=== PATIENT | female | born 1980 | race Caucasian/White ===

== ENCOUNTER 2023-12-22 10:15 | Emergency (ER) | payer BC, SELFPAY ==
[2023-12-22] VITALS (7 sets, daily range): BP systolic 128–141; BP diastolic 88–100; PULSE 82–90; RESP 18; TEMP 36.6; O2SAT 99–100
--- NOTE | ~2023-12-22 | CT_ITS ---
EXAMINATION: CT abdomen pelvis w con DATE: 12/22/2023 11:13 INDICATION: Left lower quadrant abdominal pain TECHNIQUE: Computed tomography (CT) of the abdomen and pelvis was performed with 100 mL Omnipaque-350 intravenous contrast. Automated exposure control and iterative reconstruction technique were employe d. The dose-length product was 351.26 mGy-cm. COMPARISON: 11/04/2018 FINDINGS: Mild dependent atelectasis in the dependent lower lobes. Heart size is normal. No pericardial or pleu ral effusion. Liver, gallbladder, spleen, pancreas, bilateral adrenal glands and kidneys are normal. There is moderate colonic diverticulosis with a sigmoid predominance. There is no adjacent inflammato ry change to suggest diverticulitis. Small bowel and appendix are normal.2.0 cm rim enhancing left ov josue corpus luteum cyst. Bladder, anteverted uterus and right ovary are normal. No free intraperiton eal gas or fluid. No pathologically enlarged abdominal or pelvic lymphadenopathy. Mild thoracolumbar dextrocurvature with mild to moderate lumbar spondylosis. IMPRESSION: 1. 2.0 cm left ovarian corpus luteum cyst. No other acute intra-abdominal/pelvic process. 2. Diverticulosis. Reviewed, dictated and finalized at location A. IMPRESSION: 1. 2.0 cm left ovarian corpus luteum cyst. No other acute intra-abdominal/pelvi c process. 2. Diverticulosis.
--- NOTE | ~2023-12-22 | US_ITS ---
EXAMINATION: US pelvic complete w TV DATE: 12/22/2023 12:46 INDICATION: Concern for left ovarian torsion presenting with left pelvic pain TECHNIQUE: Multiple transabdominal and endovaginal sonographic images of the pelvis were obtained. COMPARISON: CT dated 12/22/2023 and pelvic ultrasound dated 11/04/1989 FINDINGS: The uterus measures 8.5 x 4.6 x 6.7 cm. The endometrial complex measures 9 mm in thickness. In the p osterior myometrium there is a 2.9 x 2.0 x 2.2 cm ovoid region of subtly decreased echogenicity with refraction artifact extending posteriorly from a few hyperechoic foci and subtalar cystic spaces. Dif ferential would include uterine fibroid and focal adenomyosis. The right ovary measures 3.0 x 2.6 x 2 .2 cm. And 1 cm anechoic cyst at the right ovary. The left ovary measures 2.8 x 2.5 x 2.4 cm. There i s a 1.4 cm thick-walled likely corpus luteum cyst at the left ovary with increased peripheral vascula r flow on color Doppler which corresponds to the hyperenhancing rim on the prior CT. Vascular flow id entified in both ovaries on color Doppler. There are prominent left parametrial and paraovarian veins with dilated left gonadal vein evident on prior CT which can be seen with pelvic vascular congestion syndrome. There is no free fluid in the pelvis. IMPRESSION: 1. Vascular flow to both ovaries with dilated left parametrial, paraovarian and gonadal veins which c an be seen with pelvic gastric congestion syndrome. 2. 1.4 cm left ovarian corpus luteum cyst. 3. 2.9 x 2.0 x 2.2 cm hypoechoic region in the posterior uterine wall which could represent either a fibroid or focal adenomyosis. Reviewed, dictated and finalized at location A. IMPRESSION: 1. Vascular flow to both ovaries with dilated left parametrial, paraovarian and gonadal veins which can be seen with pelvic gastric congestion syndrome. 2. 1.4 cm left ovarian corpus luteum cyst. 3. 2.9 x 2.0 x 2.2 cm hypoechoic region in the posterior uterine wall which cou ld represent either a fibroid or focal adenomyosis.
--- NOTE | 2023-12-22 10:28 | ED.ABDPAIN ---
HPI - Abdominal Pain General Chief Complaint: Abdominal Pain Stated Complaint: left abd pain Time Seen by Provider: 12/22/23 10:18 History of Present Illness HPI narrative: [age] female history IBS and diverticulitis presenting emergency department for evaluation of left lower quadrant pain that is been ongoing for greater than a week and half. Patient's suspected this was initially her IBS but is symptoms proceeded she began to suspect it was diverticulitis. Patient did have follow-up urgent care on Friday and they told her they were not able to get start antibiotics recommend she have follow-up with primary care physician. Patient had follow-up with primary care physician today and they stated they also were unable to treat her and recommended that she present to the emergency department for evaluation. Patient is anxious and tearful at time of evaluation. Related Data Allergies Allergy/AdvReac Type Severity Reaction Status Date / Time cephalexin AdvReac Rash Verified 12/22/23 10:31 Review of Systems Review of Systems: All systems reviewed & are unremarkable except as noted in HPI and below Exam Narrative: APPEARANCE: Uncomfortable appearing HEAD: normocephalic, atraumatic. EYES: PERRLA/EOMI, conjunctivae clear. NOSE: Normal no drainage EARS:TMS clear with good light reflex. THROAT: Pharynx clear, no exudate. NECK: Supple. No adenopathy, no masses. RESPIRATORY: Airway patent, respirations nonlabored. Clear to auscultation bilaterally, no rales, rhonchi, wheezing. CARDIOVASCULAR: Regular rate and rhythm without murmurs rubs or gallops. ABDOMINAL: Left lower quadrant tenderness to palpation MUSCULOSKELETAL: Moves all extremities. Strength/ROM intact, No edema, No calf tenderness. NEURO: Alert. Cranial nerves II through XII intact. Grossly intact PSYCHIATRIC: Tearful and anxious affect Course Course Emergency Course: Patient felt improved with treatment patient was discharged to home. Vital Signs Vital signs: Vital Signs Temperature 97.9 F 12/22/23 10:20 Pulse Rate 90 12/22/23 10:20 Respiratory Rate 18 12/22/23 10:20 Blood Pressure 141/100 H 12/22/23 10:20 Pulse Oximetry 100 12/22/23 10:20 Oxygen Delivery Room Air 12/22/23 10:20 Temperature 97.9 F 12/22/23 10:20 Pulse Rate 82 12/22/23 13:52 Respiratory Rate 18 12/22/23 13:52 Blood Pressure 128/88 12/22/23 13:51 Pulse Oximetry 99 12/22/23 13:52 Oxygen Delivery Room Air 12/22/23 10:20 MDM - Abdominal Pain MDM Narrative Medical decision making narrative: [age] female presenting to the ED for evaluation for left lower quadrant pain with concern for diverticulitis. Patient was provided IV medications for pain control nausea control and anxiolysis. Patient is afebrile with no leukocytosis and a stable hemoglobin. INR is 1.0. No acute abnormalities on her CMP UA shows no evidence of infection. CT scan was ordered to evaluate for diverticulitis CT scan showed diverticulosis and2.0 cm left ovarian corpus luteum cyst. Ultrasound was ordered to evaluate for torsion. Ultrasound did show no evidence of torsion did show a fibroid and left-sided cyst. Patient does feel improved. Patient was updated on the results of her workup and patient was encouraged to have close follow-up with OB Gyne. Differential Diagnosis Differential diagnosis: Likely abdominal pain, acute appendicitis, constipation, diverticulitis, gastroenteritis, pancreatitis and small bowel obstruction Lab Data Attestation: I reviewed the patient's lab results. 12/22/23 10:40 12/22/23 10:40 Labs: Lab Results 12/22/23 12/22/23 Range/Units 10:40 11:48 WBC 7.6 (4.5-10.0) K/mm3 RBC 4.72 (4.2-5.4) M/mm3 Hgb 15.0 (12.0-15.0) g/dL Hct 43.6 (37.0-47.0) % MCV 92.4 (80-100) fl MCH 31.8 (26-34) pg MCHC 34.4 (32-36) g/dl RDW 12.4 (11.5-14.5) % Plt Count 152 (150-375) k/mm3 M
[2023-12-22] MEDS: Please add drug allergy info to patient profile. 1 EACH XX (10:31)
[2023-12-22] MEDS: SODIUM CHLORIDE 0.9% IV 1,000 ML 999 ML IV CONT (10:41)
[2023-12-22] MEDS: ONDANSETRON INJ 4 MG/2 ML VIAL IV PUSH (10:41)
[2023-12-22] MEDS: HYDROmorphone HCL INJ (*CRX) 1 MG/ML SYR 0.5 MG IV PUSH (10:43)
[2023-12-22 10:48] LABS: Basophils Percent Auto 0.5 % (0.2-1.2); Eosinophils Absolute Auto 0.1 K/mm3 (0-0.3); Eosinophils Percent Auto 1.4 % (0-4.4); Hematocrit 43.6 % (37.0-47.0); Immature Granulocyte Absolute 0.03 K/mm3 (0.00-0.031); Immature Granulocyte Percent A 0.4 % (0-0.5); Lymphocytes Absolute Auto 2.07 K/mm3 (0.9-3.2); Lymphocytes Percent Auto 27.2 % (18.3-44.2); Mean Corpuscular HGB Conc 34.4 g/dl (32-36); Mean Corpuscular Hemoglobin 31.8 pg (26-34); Mean Corpuscular Volume 92.4 fl (80-100); Mean Platelet Volume 10.5 fl (7.4-10.4); Monocytes Absolute Auto 0.4 K/mm3 (0.1-0.6); Monocytes Percent Auto 4.7 % (2.6-8.5); Neutrophils Percent Auto 65.8 % (45.5-73.1); Platelet Count Result 152 k/mm3 (150-375); Red Blood Count 4.72 M/mm3 (4.2-5.4); Red Cell Distribution Width 12.4 % (11.5-14.5); White Blood Count 7.6 K/mm3 (4.5-10.0)
[2023-12-22 10:57] LABS: Alanine Aminotransferase 13 U/L (6-35); Albumin Level 4.6 g/dL (3.5-5.1); Alkaline Phosphatase 58 U/L (38-126); Anion Gap 9 mmol/L (4-12); Aspartate Amino Transferase 16 U/L (14-36); Bilirubin,Total 0.8 mg/dL (0.2-1.3); Blood Urea Nitrogen 12 mg/dL (7-17); Calcium 9.2 mg/dL (8.4-10.2); Carbon Dioxide 24 mmol/L (22-30); Chloride 107 mmol/L (98-107); Estimated CRCL calculation 68 ml/min; Estimated Glomerular Filt Rate > 60; Glucose 99 mg/dL (65-110); Lipase 78 U/L (23-300); Potassium 3.7 mmol/L (3.4-5.0); Sodium 140 mmol/L (137-145)
[2023-12-22 10:58] LABS: Prothrombin Time 13.4 Seconds (11.1-14.7)
[2023-12-22 10:59] LABS: Partial Thromboplastin Time 29.3 Seconds (22.3-36.8)
[2023-12-22 11:57] LABS: Appearance Urine Clear (Clear); Bilirubin Urine Negative (Negative); Blood Urine Negative (Negative); Color Urine Yellow (Yellow); Glucose Urine UA Negative (Negative); Ketones Urine Negative (Negative); Leukocyte Esterase Ur Negative LEU/UL (Negative); Nitrate Urine Negative (Negative); Protein Urine Negative (Negative); Urobilinogen Urine 0.2 mg/dL (<2.0)
[2023-12-22 12:00] LABS: Specific Grav Ur 1.081 (1.001-1.035)
[2023-12-22 12:01] LABS: Add Urine Microscopic? NO
[2023-12-22] MEDS: HYDROcodone/acetaminophen (*CRX) 5-325 MG TABLET 1 TAB PO (14:00)
== END 2023-12-23 14:30 | disposition home or self-care (01) ==
PROVIDERS: Emergency Provider Emergency Medicine; PCP Physician Assistant
DX: R10.30 Lower abdominal pain, unspecified (principal); N83.12 Corpus luteum cyst of left ovary; D25.9 Leiomyoma of uterus, unspecified; K57.90 Diverticulosis of intestine, part unspecified, without perforation or abscess without bleeding
CPT/HCPCS: 36415; 74177; 76830; 76856; 80053; 81003; 81025; 83605; 83690; 85025; 85610; 85730; 96361; 96374; 96375; 99284; A9270; J1170; J2405; J7030; Q9967

== ENCOUNTER 2024-06-07 14:27 | Outpatient (CLI) | payer BC, SELFPAY ==
--- NOTE | ~2024-06-07 | MM_ITS ---
EXAMINATION: MM screening nate BI w kassy HISTORY: Screening TECHNIQUE: Craniocaudal and mediolateral oblique 3-D tomosynthesis images were obtained and synthetic 2-D images were generated. CAD analysis was submitted and interpreted. COMPARISON: No prior mammogram is available for comparison at this institution. BREAST PARENCHYMAL COMPOSITION: Dense: The breasts are heterogeneously dense, which may obscure small masses FINDINGS: There is a focal asymmetry superiorly in the right breast on MLO view. There is no mammogra phic evidence for malignancy in the left breast. IMPRESSION: 1. Focal right breast asymmetry superiorly on MLO view. 2. Additional mammographic views and possible breast ultrasound are recommended. BI-RADS Category 0: Incomplete: Needs additional imaging evaluation. Reviewed, dictated and finalized at location B. TRIPPER IMPRESSION: 1. Focal right breast asymmetry superiorly on MLO view. 2. Additional mammographic views and possible breast ultrasound are recommended . BI-RADS Category 0: Incomplete: Needs additional imaging evaluation.
== END 2024-06-07 14:28 | disposition home or self-care (01) ==
LOC: CHSIMG 14:28
PROVIDERS: PCP Physician Assistant; Visit Provider Obstetrics & Gynecology
DX: Z12.31 Encounter for screening mammogram for malignant neoplasm of breast (principal); R92.8 Other abnormal and inconclusive findings on diagnostic imaging of breast
CPT/HCPCS: 77063; 77067

== ENCOUNTER 2024-08-09 09:28 | Outpatient (CLI) | payer BC, SELFPAY ==
--- NOTE | ~2024-08-09 | MM_ITS ---
EXAMINATION: MM diagnostic nate RT w kassy HISTORY: Right breast asymmetry TECHNIQUE: Additional 3-D tomosynthesis images of the right breast were performed and synthetic 2-D i mages were generated. CAD analysis was submitted and interpreted. COMPARISON: 06/07/2024 BREAST PARENCHYMAL COMPOSITION:Dense: The breasts are heterogeneously dense, which may obscure small masses. FINDINGS: Right breast asymmetry effaces with spot compression. No persistent mass lesion or distorti on seen. No suspicious microcalcification. IMPRESSION: No mammographic evidence for malignancy. BI-RADS Category 1: Negative Reviewed, dictated and finalized at location . ET PULLER
--- OUTSIDE RECORDS SUMMARY | 2024-08-09 10:02 | XMS_ITS | Referral Summary ---
Author Organization [facility] Medical Office Building [address] Address [address] [place] [address] Care Team Providers Care Adjunct Mathematics Instructor Name Role Phone Dwayne Joyce Primary Care Provider [phone] Allergies Active Allergy Reactions Criticality Noted Date Comments Cephalexin Rash Low Reaction: RASH Medications PNV #[id number] acid-dha 35 mg iron-5 mg iron-1 mg capsule Take 1 capsule by mouth daily. 30 capsule 11 8 Active Additional Information Patient not taking.Reported on 01/27/2020 cholecalciferol (VITAMIN D-3) 2,000 unit capsule Take 2,000 Units by mouth daily. 11 8 Active dicyclomine (BENTYL) 10 mg capsule Take 1 capsule (10 mg total) by mouth 4 (four) times a day as needed (abdominal cramping and diarrhea) 120 capsule 1 0 Active Bifidobacterium infantis (ALIGN) 4 mg capsuleIndicatio ns:Irritable bowel syndrome, unspecified type Take 1 capsule (4 mg total) by mouth daily 28 capsule 0 Active Active Problems Problem Noted Date Diagnosed Date Irritable bowel syndrome with diarrhea 0 Assessment & Plan (01/27/2020 1:49 PM CDT): Pt has had bowel issues since she was a child. She says she had colonoscopy and other workup either in 2006 or 2008. Workup was negative and patient was diagnosed with IBS. She was on Levsin twice daily for many years.This helped with cramping but not with diarrhea. After of her first son, symptoms stopped and no issues for about 5 years. After her daughter was born (Jul 2018) she started to have issues again. Had diverticulitis episode November 2018 and treated with abx. She has had problems with diarrhea and cramping ever since. Pt says she has cramping in lower abdomen and can start in evening/night. She wakes up with cramping and causes her to have BM. The cramping stops once she has a BM but has some residual soreness in lower abdomen for a few hours. Eating often triggers a BM to occur and she can often have urgency. Denies weight loss, blood in stool. Denies family history of colon cancer. Agree that patient sx suggestive of IBS. Will start patient on daily probiotic. We discussed importance of diet with IBS and findings foods that may trigger her symptoms. Will have her use dicyclomine 10mg QID prn for abdominal cramping and diarrhea. Pt was told to use dicyclomine at least 3 times daily at least 30 to 45 minutes before meal and then can use 4th dose if she has cramping later in day. Will f/u in about 1 month. If no improvement or she has worrisome signs occurs, will consider colonoscopy. Bilateral lower abdominal cramping 01/27/2020 Assessment & Plan (01/27/2020 1:50 PM CDT): Cramping in lower abdomen that is relieved with BM. She says she does get some soreness after BM. Often has urgency as well. Starting on dicyclomine and probiotics. BMI 22.0-22.9, adult 01/27/2020 Vitamin D deficiency 01/22/2018 Resolved Problems Problem Noted Date Diagnosed Date Resolved Date Cholestasis during in third trimester 07/14/2018 08/25/2018 GBS (group B Streptococcus c pascale), +RV culture, currently 07/13/2018 08/25/2018 Benign gestational thrombocy topenia in second trimester 02/17/2018 08/25/2018 Vaginal delivery 08/25/2018 38 weeks gestation of 08/25/2018 Immunizations Name Administration Dates Next Due Influenza, Quadrivalent, Spl it, Preservative Free, Intramuscular 04/10/2018 MMR 07/17/2018(Deferred: No longer n eeded) Tdap 06/17/2018 Social History Tobacco Use Types Packs/Day Years Used Date Smoking Tobacco: Former Smokeless Tobacco: Never Alcohol Use Standard Drinks/Week Comments No 0 (1 standard drink = 0.6 oz pur e alcohol) Personal Safety Answer Date Recorded Getting School Help Needed Not on file 09/18 Comments No Sex and Gender Information Value Date Recorded Sex Assigned at Not on file 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 Gender Identity Not on file Sexual Orientation Not on file Last Filed Vital Signs Vital Sign Reading Time Taken Comments Blood Pressure 110/64 01/27/2020 10:42 AM CDT Pulse 93 01/27/2020 10:42 AM CDT Temperature 36.1 ??C (96.9 ??F) 01/27/2020 10:42 AM C DT Respiratory Rate 20 01/27/2020 10:42 AM CDT Oxygen Saturation 100% 01/27/2020 10:42 AM CDT Inhaled Oxygen Concentration - - Weight 65.8 kg (145 lb) 01/27/2020 10:42 AM CDT Height 170.2 cm (5' 7 ) 01/27/2020 10:42 AM CDT Body Mass Index 22.71 01/27/2020 10:42 AM CDT Plan of Treatment Not on file Insurance Advance Directives For more information, please contact: [phone] * Full Code (Latest Code Status on File) Date Activated Date Inactivated Comments 07/14/2018 5:37 PM 07/17/2018 1:43 PM Full CPR in c ase of cardiopulmonary arrest Care Teams Adjunct Mathematics Instructor Relationship Specialty Start Date End Date Dwayne Joyce PA [address] [place] [address] PCP - General Family Practice 01/27/20
--- OUTSIDE RECORDS SUMMARY | 2024-08-09 10:02 | XMS_ITS | Data Portability ---
Author Organization [place] [facility] - [facility] [place] Address [address] [place] [address] Assessment Encounter Date Assessment Date Assessment LastModified by Organization Details LastModified Time 06/27/2023 06/27/2023 Pt here with below diagnosis - pt here for evaluation for their condition, evaluation of their medication use, and discussion for alternative treatments. [email or web address] Not available 06/27/2023 11:29:46 07/01/2023 07/01/2023 Patient was seen today for follow up visit. We discussed patients future use of MMJ. We discussed the risks and benefits. Pt understands that we will certify patient, but the recommendation does not constitute a prescription for medical cannabis. Patient will receive an email from us with instructions on how to proceed by the evening of the next business day. [email or web address] Not available 07/01/2023 13:55:22 Plan of Treatment Reminders Order Date Submit Date Provider Last Modified By Organization Details Last Modified Time Details Appointments None record ed. Lab None record ed. Referral None record ed. Procedures None record ed. Surgeries None record ed. Imaging None record ed. Medication Orders None record ed. Patient TargetsNo targets recorded. Patient Instructions Encounter Date Encounter Id Patient Instructions Last Modified By Organization Details Last Modified Time 06/27/2023 [id number] irritable bowel syndrome: care instructions [email or web address] Not available 06/27/2023 11:30:18 I have discussed the risks and benefits of Medical Marijuana. Pt understands I am not prescribing this medication. I am certifying that this patient has a condition that is recognized by the state as qualifying for medical marijuana and this recommendation does not constitute a prescription for medical cannabis. Pt understands that my physician written certification form does not guarantee Medical Marijuana certification nor does it endorse the patient as needing medical marijuana. Patient understands that Medical Marijuana is a drug that the federal government has classified cannabis as a Schedule I controlled substance. Schedule 1 substances are defined, in part, as having (1) a high potential for abuse; (2) no currently accepted medical use in treatment in the [place]; and (3) a lack of accepted Safety for use under medical supervision. Federal law prohibits the manufacture, distribution and possession of cannabis even in states, which have modified their state laws to treat cannabis as a medicine. Pt also agrees that me, and the [facility] are my treating physicians and that we are in charge of treating the patient's conditions and that the patient will make a good maru effort to remain under my treatment plan and acknowledge there will be follow up visits from this date forward to monitor the patient's condition. Discussed risks and benefits of Medical Marijuana. I have spent time discussing the patients condition, pain/medical management of the patient given their debilitating condition, the risks and benefits of this medication, a history and physical, gathering old medical records to look at the disease processes being evaluated, and answering of all questions. [email or web address] Not available 06/27/2023 11:29:46 07/01/2023 [id number] I have discussed the risks and benefits of Medical Marijuana. Pt understands I am not prescribing this medication. I am certifying that this patient has a condition that is recognized by the state as qualifying for medical marijuana and this recommendation does not constitute a prescription for medical cannabis. Pt understands that my physician written certification form does not guarantee Medical Marijuana certification nor does it endorse the patient as needing medical marijuana. Patient understands that Medical Marijuana is a drug that the federal government has classified cannabis as a Schedule I controlled substance. Schedule 1 substances are defined, in part, as having (1) a high potential for abuse; (2) no currently accepted medical use in treatment in the [place]; and (3) a lack of accepted Safety for use under medical supervision. Federal law prohibits the manufacture, distribution and possession of cannabis even in states, which have modified their state laws to treat cannabis as a medicine. Pt also agrees that me, and the [facility] are my treating physicians and that we are in charge of treating the patient's conditions and that the patient will make a good maru effort to remain under my treatment plan and acknowledge there will be follow up visits from this date forward to monitor the patient's condition. Discussed risks and benefits of Medical Marijuana. I have spent time discussing the patients condition, pain/medical management of the patient given their debilitating condition, the risks and benefits of this medication, a history and physical, gathering old medical records to look at the disease processes being evaluated, and answering of all questions. [email or web address] Not available 07/01/2023 13:55:22 Reason for Referral None Reported. Medical Equipment None Reported. Medications Not known to be on any medication Vitals None Recorded Social History None recorded. Functional Status None recorded. Mental Status None recorded. Family History Nothing Reported. Medical History No medical history recorded. Gynecological HistoryNo gynecological history recorded. Obstetrics History GPAL:G 0 P 0 0 0 0 Past Encounters Encounter ID Performer Location Encounter Start Date Encounter Closed Date Diagnosis/Indication Diagnosis SNOMED-CT Code Diagnosis ICD10 Code Diagnosis Note [id number] ZORAIDA ZHOU PA-C [employer] [facility] [address] [place] [address] 06/27/2023 11:21:22 06/27/2023 12:49:17 Irritable bowel syndrome 86298458 K58.9 [id number] ZORAIDA ZHOU PA-C [employer] [facility] [address] [facility] [address] [place] [address] 07/01/2023 13:54:59 07/01/2023 14:07:46 Irritable bowel syndrome 67667235 K58.9 Health Concerns Section Related Observation LastModified by Organization Detai ls LastModified Time None Recorded Concern Status LastModified by Organization Details LastModified Time None Recorded Advance Directives Directive None Recorded Payers Encounter Date Sequence Insurance Name Policy Number Policy Leong Covered Member ID Leong Member ID Guarantor Name 06/27/2023 1 [place] [id number] 2 Katheryn Levy [id number] Katheryn Cam 07/01/2023 1 [place] [id number] Katheryn Sloane Levy [id number] Katheryn Levy Notes Date Note Type Note Provider Name and Address Organization Details Recorded Time 06/27/2023 text/html The patient woul d like to discuss medications, the disease, and how to handle it. Pt would also like to discuss alternative treatments to this condition. Pt was referred here for further evaluation and treatment if necessary. Patient has a diagnosis of qualifying condition - IRRITABLE BOWEL SYNDROME [address], [place], [address], [facility] 06/27/2023 11:30:26 07/01/2023 text/html The patient woul d like to discuss medications, the disease, and how to handle it. Pt would also like to discuss alternative treatments to this condition. Pt was referred here for further evaluation and treatment if necessary. Patient has a diagnosis of qualifying condition - irritable bowel syndrome. Pt here for 2nd visit to discuss condition and develop a relationship. We discussed the above and future use of medical marijuana. ZORAIDA ZHOU PA-C [address], [address], [place], [address], [facility] - [facility] 07/01/2023 13:57:55 OBGyn Episode No OBEpisode recorded.
--- OUTSIDE RECORDS SUMMARY | 2024-08-09 10:02 | XMS_ITS | Clinical Summary ---
Author Organization [facility] Medical Office Building [address] Address [address] [place] [address] Care Team Providers Care Heel Breaster Name Role Phone Dwayne Joyce Primary Care Provider [phone] Allergies Active Allergy Reactions Criticality Noted Date Comments Cephalexin Rash Low Reaction: RASH Medications PNV #[id number] acid-dha 35 mg iron-5 mg iron-1 mg [...] 07/17/2018(Deferred: No longer n eeded) Tdap 06/17/2018 Surgical History Surgery Date Site/Laterality Comments TONSILLECTOMY 07/07/1998 - 07/06/1999 OTHER SURGICAL HISTORY 07/07/2016 - 07/06/2017 Right Fifth metatarsal pin placed and removed Medical History Medical History Date Comments IBS (irritable bowel syndrome) Family History Medical History Relation Name Comments Prostate cancer Father Lupus Mother thyroid disease Mother Relation Name Status Comments Father Mother Social History Tobacco Use Types Packs/Day Years [...] on file 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 ([facility]) Last Filed Vital Signs Vital Sign Reading [...] Plan of Treatment Not on file Insurance [email or web address] [place] Advance Directives For more information, please contact: [phone] * Full Code (Latest Code Status on File) Date Activated Date Inactivated Comments 07/14/2018 5:37 PM 07/17/2018 1:43 PM Full CPR in c ase of cardiopulmonary arrest Care Teams Heel Breaster Relationship Specialty Start Date End Date Dwayne Joyce PA [address] [place] [address] PCP - General Family Practice 01/27/20
--- OUTSIDE RECORDS SUMMARY | 2024-08-09 10:02 | XMS_ITS | Data Portability ---
Author Organization [facility] [place] Address [address] 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 Plan of Treatment Reminders Order Date Submit Date Provider Last Modified By Organization Details Last Modified Time Details Appointments None recorded. Lab rapid SARS CoV 2 Ag, QL IA, respiratory specimen 2021 022 lilia In-Office Order, Internal Use Only DO Not Attach Compendium DO Not Attach Compendium, Do Not Delete/merge, [id number] 2 15:29:52 CBC 2023 024 [facility], [address] [facility] [address], [address], 4 10:14:05 CMP, serum or plasma 2023 024 [facility], [address] [facility] 2, [place], [address], 4 10:14:04 lipid panel, serum 2023 024 [facility], [address] [facility], [place], [address], 4 10:14:03 HbA1c (hemoglobin A1c), blood 2023 024 CAMILA In-Office Order, Internal Use Only DO Not Attach Compendium DO Not Attach Compendium, Do Not Delete/merge, [id number] 4 15:57:04 Referral None recorded. Procedures None recorded. Surgeries None recorded. Imaging None recorded. Medication Orders dicyclomine 10 mg capsule 2023 024 [id number], [address] [place], [address], 4 11:10:39 buspirone 5 mg tablet 2023 [id number], [address] [place], [address], 4 11:12:27 dicyclomine 10 mg capsule 2023 [id number], [address] [place], [address], 4 14:51:57 buspirone 5 mg tablet 2023 [id number], [address] [place], [address], 4 14:51:54 Patient TargetsNo targets recorded. Patient Instructions Encounter Date Encounter Id Patient Instructions Last Modified By Organization Details Last Modified Time 06/11/2022 [id number] cough: care instructions jnanney Not available 06/11/2022 15:29:52 01/19/2024 [id number] A healthy lifestyle: care instructions jnanney Not available 01/19/2024 14:50:08 Reason for Referral None Reported. Results Created Date Observation Date Name Description Value Unit Range Abnormal Flag Note LastModifiedBy Organization Detail LastModifiedTime 06/11/20 22 06/11/2022 rapid SARS CoV 2 Ag, QL IA, respi rator y speci men rapid SARS CoV 2 Ag, QL IA, respiratory specimen negati ve Not Available In-Office Order Internal Use Only DO Not Attach Compendium DO Not Attach Compendium, Do Not Delete/merge, [id number] 06/11/2022 14:43:32 08/21/19 24 08/22/2023 LIPID PANEL cholesterol, total 152 mg/dL 100-19 9 Not Available [address], [address], 08/22/2023 10:14:03 08/21/19 24 08/22/2023 LIPID PANEL triglyceride s 186 mg/dL 0-149 above high normal Not Available [address], [address], 08/22/2023 10:14:03 08/21/19 24 08/22/2023 LIPID PANEL HDL cholesterol 47 mg/dL >39 Not Available [address], [address], 08/22/2023 10:14:03 08/21/19 24 08/22/2023 LIPID PANEL VLDL cholesterol terri 31 mg/dL 5-40 Not Available [address], [address], 08/22/2023 10:14:03 08/21/19 24 08/22/2023 LIPID PANEL LDL chol calc (nih) 74 mg/dL 0-99 Not Available [address], [address], 08/22/2023 10:14:03 08/21/19 24 08/22/2023 COMP. METAB OLIC PANEL (14) glucose 85 mg/dL 70-99 Not Available [address], [address], 08/22/2023 10:14:03 08/21/19 24 08/22/2023 COMP. METAB OLIC PANEL (14) BUN 10 mg/dL 6-24 Not Available [address], [address], 08/22/2023 10:14:03 08/21/19 24 08/22/2023 COMP. METAB OLIC PANEL (14) creatinine 0.84 mg/dL 0.57-1 .00 Not Available [address], [address], 08/22/2023 10:14:03 08/21/19 24 08/22/2023 COMP. METAB OLIC PANEL (14) eGFR 88 mL/mi n/1.7 3 >59 Not Available [address], [address], 08/22/2023 10:14:03 08/21/19 24 08/22/2023 COMP. METAB OLIC PANEL (14) BUN/creatini ne ratio 12 9-23 Not Available [address], [address], 08/22/2023 10:14:03 08/21/19 24 08/22/2023 COMP. METAB OLIC PANEL (14) sodium 141 mmol/ L 134-14 4 Not Available [address], [address], 08/22/2023 10:14:03 08/21/19 24 08/22/2023 COMP. METAB OLIC PANEL (14) potassium 4.3 mmol/ L 3.5-5. 2 Not Available [address], [address], 08/22/2023 10:14:03 08/21/19 24 08/22/2023 COMP. METAB OLIC PANEL (14) chloride 104 mmol/ L 96-106 Not Available [address], [address], 08/22/2023 10:14:03 08/21/19 24 08/22/2023 COMP. METAB OLIC PANEL (14) carbon dioxide, total 25 mmol/ L 20-29 Not Available [address], [address], 08/22/2023 10:14:03 08/21/19 24 08/22/2023 COMP. METAB OLIC PANEL (14) calcium 9.3 mg/dL 8.7-10 .2 Not Available [address], [address], 08/22/2023 10:14:03 08/21/19 24 08/22/2023 COMP. METAB OLIC PANEL (14) protein, total 6.2 g/dL 6.0-8. 5 Not Available [address], [address], 08/22/2023 10:14:03 08/21/19 24 08/22/2023 COMP. METAB OLIC PANEL (14) albumin 4.4 g/dL 3.9-4. 9 Not Available [address], [address], 08/22/2023 10:14:03 08/21/19 24 08/22/2023 COMP. METAB OLIC PANEL (14) globulin, total 1.8 g/dL 1.5-4. 5 Not Available [address], [address], 08/22/2023 10:14:03 08/21/19 24 08/22/2023 COMP. METAB OLIC PANEL (14) A/G ratio 2.4 1.2-2. 2 above high normal Not Available [address], [address], 08/22/2023 10:14:03 08/21/19 24 08/22/2023 COMP. METAB OLIC PANEL (14) bilirubin, total 0.2 mg/dL 0.0-1. 2 Not Available [address], [address], 08/22/2023 10:14:03 08/21/19 24 08/22/2023 COMP. METAB OLIC PANEL (14) alkaline phosphatase 63 IU/L 44-121 Not Available [facility] & [address], [address], 08/22/2023 10:14:03 08/21/19 24 08/22/2023 COMP. METAB OLIC PANEL (14) AST (SGOT) 16 IU/L 0-40 Not Available [facility] & [address], [address], 08/22/2023 10:14:03 08/21/19 24 08/22/2023 COMP. METAB OLIC PANEL (14) ALT (SGPT) 11 IU/L 0-32 Not Available [address], [address], 08/22/2023 10:14:03 08/21/19 24 08/22/2023 CARDI OVASC ULAR REPOR T interpretati on Note Suppl emsun al repor t is avail able. Not Available [address], [address], 08/22/2023 10:14:05 08/21/19 24 08/22/2023 CARDI OVASC ULAR REPOR T pdf . Not Available [facility] & [address], [address], 08/22/2023 10:14:05 08/21/19 24 08/22/2023 CBC, PLATE LET, NO DIFFE RENTI AL WBC 5.4 x10e3 /uL 3.4-10 .8 Not Available [address], [address], 08/22/2023 10:14:05 08/21/19 24 08/22/2023 CBC, PLATE LET, NO DIFFE RENTI AL RBC 4.31 x10e6 /uL 3.77-5 .28 Not Available [facility] & [address], [address], 08/22/2023 10:14:05 08/21/19 24 08/22/2023 CBC, PLATE LET, NO DIFFE RENTI AL hemoglobin 13.4 g/dL 11.1-1 5.9 Not Available [address], [address], 08/22/2023 10:14:05 08/21/19 24 08/22/2023 CBC, PLATE LET, NO DIFFE RENTI AL hematocrit 40.4 % 34.0-4 6.6 Not Available [address], [address], 08/22/2023 10:14:05 08/21/19 24 08/22/2023 CBC, PLATE LET, NO DIFFE RENTI AL MCV 94 fL 79-97 Not Available [address], [address], 08/22/2023 10:14:05 08/21/19 24 08/22/2023 CBC, PLATE LET, NO DIFFE RENTI AL MCH 31.1 pg 26.6-3 3.0 Not Available [address], [address], 08/22/2023 10:14:05 08/21/19 24 08/22/2023 CBC, PLATE LET, NO DIFFE RENTI AL MCHC 33.2 g/dL 31.5-3 5.7 Not Available [facility] & [address], [address], 08/22/2023 10:14:05 08/21/19 24 08/22/2023 CBC, PLATE LET, NO DIFFE RENTI AL RDW 12.5 % 11.7-1 5.4 Not Available [address], [address], 08/22/2023 10:14:05 08/21/19 24 08/22/2023 CBC, PLATE LET, NO DIFFE RENTI AL platelets 174 x10e3 /uL 150-45 0 Not Available [facility] [address] [facility], [place], [address], 08/22/2023 10:14:05 08/21/19 24 08/21/2023 HbA1c (hemo globi n A1c), blood HbA1c 5.4 Not Available In-Office Order Internal Use Only DO Not Attach Compendium DO Not Attach Compendium, Do Not Delete/merge, [id number] 08/21/2023 15:44:01 12/22/19 24 12/22/2023 CT, abdom en + pelvi s, w/ contr ast No observ ation record ed. [address] [facility], [place], [address], 12/22/2023 12:44:37 12/22/19 24 12/22/2023 US, pelvi s, compl ete No observ ation record ed. [address], [place], [address], 12/22/2023 14:14:19 06/07/20 24 06/07/2024 MAMMO , scree jose, digit al, bilat eral No observ ation record ed. [facility] [address] [facility], [place], [address], 06/08/2024 09:09:22 Result Notes None recorded. Problems Name Problem SNOMED Code Status Onset Date Resolution Date Notes Provider Name and Address Organization Details Recorded Time Diverticulitis 730897685 Active 2018 MARTY [place]err[place] - [facility] 9 12:11:32 Irritable bowel syndrome 10328785 Active 2018 MARTY [place] [facility] 9 12:12:05 Problem Notes None recorded. Procedures Surgical History Date Name Laterality Status Provider Name and Address Organization Details Recorded Time 8 colonoscopy completed Sadie Griffin [place] - [facility] 12/07/2018 12:11:57 tonsillectomy completed Sadie Griffin MA [place] - [facility] 12/07/2018 12:13:47 Imaging Results Imaging Date Name Status LastModified by Organiz ation Details LastModified Time 12/22/2023 CT, abdomen + pelvis, w/ contrast completed [place] [address] [facility] [address], [address], 12/22/2023 12:44:37 12/22/2023 US, pelvis, complete completed [facility] [address], [place], [address], 12/22/2023 14:14:19 06/07/2024 MAMMO, screening, digital, bilateral completed [facility] [address] [place], [address], 06/08/2024 09:09:22 Procedure Notes None recorded. Medical Equipment None Reported. Allergies Allergen ID Allergen Name Allergen Category Reaction Reaction Severity Criticality Documentation Date Start Date Code Code System Note Provider Name and Address Organization Details Recorded Time 513515 Keflex medicatio n rash Not available Not available 12/07/201823806 7 RxNorm Arms Not Available Not Available Not Available Medications Name Sig Start Date Stop Date Status Note LastModified by Organization Details LastModified Time buspirone 5 mg tablet TAKE 1 TABLET BY MOUTH THREE TIMES A DAY DIRECTED FOR 30 DAYS 2023 active Not Available Not Available Not Avai lable hydrocodone 5 mg-acetamin ophen 325 mg tablet TAKE 1 TABLET BY MOUTH EVERY 12 HOURS NEEDED FOR PAIN 01/18 completed Not Available Not Available Not Available gabapentin 100 mg capsule TAKE 1 CAPSULE BY MOUTH THREE TIMES A DAY FOR 30 DAYS 08/21 completed Not Available Not Available Not Available dicyclomine 10 mg capsule TAKE 1 CAPSULE BY MOUTH THREE TIMES A DAY NEEDED active Not Available Not Available No t Available naproxen 500 mg tablet TAKE 1 TABLET BY MOUTH TWICE A DAY 08/21 completed Not Available Not Available Not Available Blisovi 24 Fe 1 mg-20 mcg (24)/75 mg (4) tablet active Not Available Not Available Not Available Paxlovid 300 mg (150 mg x 2)-100 mg tablets in a dose pack TAKE 1 DOSE PACK BY MOUTH DIRECTED 08/21 completed Not Available Not Available Not Available Vitals Date Recorded Body weight Body mass index (BMI) Body height Oxygen saturation Oxygen saturation in Arterial blood by Pulse oximetry Heart rate Systolic blood pressure Diastolic blood pressure Provider Name and Address Organization Details Last Updated DateTime 4 55656.1 9 g 26.1 kg/m2 166.37 cm 99 % 99 % 78 /min 110 mm[Hg] 72 mm[Hg] Skye Mandujano MA [facility] 4 15:33:11 Date Recorded Body height Body mass index (BMI) Body weight Oxygen saturation Oxygen saturation in Arterial blood by Pulse oximetry Heart rate Systolic blood pressure Diastolic blood pressure Provider Name and Address Organization Details Last Updated DateTime 4 166.37 cm 25.1 kg/m2 31166.6 3 g 100 % 100 % 101 /min 140 mm[Hg] 100 mm[Hg] Skye Mandujano MA [facility] 4 10:13:55 Date Recorded Body height Body mass index (BMI) Body weight Oxygen saturation Oxygen saturation in Arterial blood by Pulse oximetry Heart rate Systolic blood pressure Diastolic blood pressure Provider Name and Address Organization Details Last Updated DateTime 4 166.37 cm 25.1 kg/m2 03654.6 3 g 98 % 98 % 98 /min 119 mm[Hg] 82 mm[Hg] Nella Lee MA [facility] 4 10:53:44 Date Recorded Body height Body mass index (BMI) Body weight Oxygen saturation Oxygen saturation in Arterial blood by Pulse oximetry Heart rate Systolic blood pressure Diastolic blood pressure Provider Name and Address Organization Details Last Updated DateTime 4 166.37 cm 25.4 kg/m2 36545.8 2 g 99 % 99 % 82 /min 116 mm[Hg] 66 mm[Hg] Nella Lee MA [facility] 4 14:28:39 Social History Question Answer Notes LastModified by Organizat ion Details LastModified Time Tobacco Smoking Status Former Smoker MARTY [place]err[place] [facility] 12/07/2018 12:13:11 What Is Your Level Of Alcohol Consumption? Occasional Information not available 12/07/2018 What Is Your Level Of Caffeine Consumption? Moderate Information not available 12/07/2018 How Much Tobacco Do You Chew? None Information not available 01/05/2020 In The 14 Days Before Symptom Onset, Have You Had Close Contact With A Laboratory-confir med COVID-19 While That Case Was Ill? No Information not available 09/25/2020 In The 14 Days Before Symptom Onset, Have You Had Close Contact With A Person Who Is Under Investigation For COVID-19 While That Person Was Ill? No Information not available 09/25/2020 Have You Been To An Area Known To Be High Risk For COVID-19? No Information not available 09/25/2020 Are You Currently Employed? Yes Information not available 01/05/2020 What Type Of Diet Are You Following? REGULAR Information not available 12/07/2018 Which Illicit Or Recreational Drugs Have You Used? None Information not available 12/07/2018 Do You Or Have You Ever Used E-cigarettes Or Vape? Never Used Electronic Cigarettes Information not available 01/05/2020 What Is Your Occupation? [employer] Information not available 01/05/2020 What Was The Date Of Your Most Recent Tobacco Screening? 01/19/2024 [email or web address] Information not available 01/19/2024 How Many Children Do You Have? 2 Information not available 01/30/2022 What Is Your Relationship Status? Information not available 09/25/2020 Do You Use Your Seat Belt Or Car Seat Routinely? Yes Information not available 08/21/2023 Are You Sexually Active? Yes Information not available 01/30/2022 Do You Have Smoke And Carbon Monoxide Detectors In Your Home? Yes Information not available 08/21/2023 Are You Passively Exposed To Smoke? No Information no t available 08/21/2023 Do You Or Have You Ever Used Smokeless Tobacco? Never Used Smokeless Tobacco Information not available 01/05/2020 How Much Tobacco Do You Smoke? No Information not available 12/07/2018 General Stress Level Low Information not available 01/05/2020 Do You Feel Stressed (tense, Restless, Nervous, Or Anxious, Or Unable To Sleep At Night)? [id number] Information not available 08/21/2023 Do You Use Any Illicit Or Recreational Drugs? No Information not available 09/25/2020 Has Tobacco Cessation Counseling Been Provided? No Information not available 12/07/2018 How Many Years Have You Smoked Tobacco? 0 Information not available 12/07/2018 Do You Or Have You Ever Used Any Other Forms Of Tobacco Or Nicotine? No Information not available 01/30/2022 Sex: Unknown Functional Status Question Answer Note LastModified by Organizat ion Details LastModified Time Are you able to care for yourself? Yes Information not available 01/05/2020 What is your exercise level? Occasional Information not available 01/30/2022 Mental Status None recorded. Family History Relationship Description Onset Age of this Age Resolved Age Notes LastModified by Organization Details LastModified Time Father Family history of malignant neoplasm Prosta te, Jayson r [email or web address] Not available 12/07/2018 12:12:42 Mother Graves' disease [email or web address] Not available 12/07 12:12:52 Mother Endometriosi s (clinical) [email or web address] Not available 12:13:05 Notes:Lupus-Mother Medical History Condition Response Coronary Artery Disease N Other N Atrial Fibrillation N High Blood Pressure N Depression N COPD N Blood Clots N Anxiety Disorder N Muscle, Joint, or Bone Problems N Acid Reflux (GERD) N Cancer N Stroke N High Cholesterol N Liver Disease N Headaches N Kidney or Bladder Problems N Thyroid Problems N GI Problems Y Skin Problems N Anemia N Heart Attack ([place]) N Diabetes N Seizures/Epilepsy N Asthma N Allergies N Hepatitis N Heart Failure N Osteoporosis N Gynecological History Statement/Question Response Date of Last Mammogram Date of LMP 12/25/2023 Menses Monthly Y Date of Last Pap Smear Duration of Flow (days) 3 Current Control Method None LMP Definite Obstetrics History GPAL:G 2 P 2 0 0 2 Type Value Full Term 2 Living 2 Total 2 Immunizations Vaccine Type Date Status Note Provider Nam e and Address Organization Details Recorded Time COVID-19, mRNA, LNP-S, PF, 100 mcg/0.5mL dose or 50 mcg/0.25mL dose 07/28/2021 completed Skye Mandujano MA [facility], [place] - [facility] 07/30/2021 09:41:08 Past Encounters Encounter ID Performer Location Encounter Start Date Encounter Closed Date Diagnosis/Indication Diagnosis SNOMED-CT Code Diagnosis ICD10 Code Diagnosis Note [id number] Mariela Batres MA [facility] [address] [place] [address] 12/07/2018 11:58:49 12/08/2018 11:06:11 Irritable bowel syndrome with diarrhea 361000702 K58.0 Diverticul ar disease of colon 789968698 K57.30 [id number] Mary Joyce PA-C [facility] [address] [place] [address] 01/05/2020 09:27:53 01/06/2020 09:48:07 Left lower quadrant pain 324091042 R10.32 [id number] Mary Joyce PA-C [facility] [address] [place] [address] 09/25/2020 10:51:30 09/26/2020 17:50:25 Axillary lymphadenopathy 786591679 R59.0 Plantar wa rt of left foot 0987028373 0556502 B07.0 [id number] Mary Joyce PA-C [facility] [address] [place] [address] 01/30/2022 10:35:14 01/30/2022 11:17:31 Right side sciatica 8157982377 72000 M54.31 [id number] Verna Larose MA [facility] [address] [place] [address] 06/11/2022 14:40:41 06/11/2022 15:57:43 Cough 42024424 R05.9 [id number] Mary Joyce PA-C [facility] [address] [place] [address] 08/21/2023 15:21:19 08/25/2023 15:52:19 Adult health examination 911645200 Z00.00 Body mass index 20-24 - normal 889449161 Z68.24 [id number] Mary Joyce PA-C [facility] [address] [place] [address] 12/22/2023 10:04:45 12/23/2023 16:30:02 Diverticulosis of colon 731367864 K57.30 go to ER now..expla ined potential for perforatio n Body mass index 20-24 - normal 677408799 Z68.24 [id number] Mary Joyce PA-C [facility] [address] [place] [address] 12/26/2023 10:44:41 12/26/2023 15:10:29 Left lower quadrant pain 749723980 R10.32 Irritable bowel syndrome characterized by constipation 311460461 K58.1 Mixed anxi ety and depressive disorder 183437834 F41.8 [id number] Mary Joyce PA-C [facility] [address] [place] [address] 01/19/2024 14:19:07 01/22/2024 15:20:03 Mixed anxiety and depressive disorder 650473483 F41.8 Overweight 812029132 E66 .3 Irritable bowel syndrome characterized by constipation 647628150 K58.1 Health Concerns Section Related Observation LastModified by Organization Detai ls LastModified Time None Recorded Concern Status LastModified by Organization Details LastModified Time None Recorded Advance Directives Directive None Recorded Payers Encounter Date Sequence Insurance Name Policy Number Policy Leong Covered Member ID Leong Member ID Guarantor Name 06/11/2022 1 [place] [id number] 2 Katheryn Anton Cam [id number] Katheryn Levy 08/21/2023 1 [place] [id number] 2 Katheryn Anton Cam [id number] Katheryn Levy 12/22/2023 1 [place] [id number] 2 Katheryn Anton Cam [id number] Katheryn Levy 12/26/2023 1 [place] [id number] 2 Katheryn Levy [id number] Katheryn Levy 01/19/2024 1 [place] [id number] 2 Katheryn Levy [id number] Katheryn Levy Notes Date Note Type Note Provider Name and Address Organization Details Recorded Time 08/21/2023 text/html check up ...had covid 2-3 weeks ago...residual rattle ...otherwise good Mary Joyce PA-C Attn: Accounting,[address] [facility], [place], [place], [address] [place] [address], [facility] - [facility] 08/21/2023 15:45:09 12/22/2023 text/html hx of diverticulitis...n ow has a week long left sided abdominal pain worsening Mary Joyce PA-C Attn: Accounting,[address] [place], [place], [address] [place] [address], [facility] - [facility] 12/22/2023 10:28:15 12/26/2023 text/html follow up on ER...diverticuliti s was ruled out and determined it was ovarian cyst... Mary Joyce PA-C Attn: Accounting, [address] [place], [address], [place] [facility] 12/26/2023 11:13:14 01/19/2024 text/html follow up on buspar says it works better at a higher dose.....also says that the dicyclomine at night helps... Mary Joyce PA-C Attn: Accounting,[address] [place], [address], [place] [facility] 01/19/2024 14:52:45 OBGyn Episode No OBEpisode recorded.
== END 2024-08-09 09:29 | disposition home or self-care (01) ==
PROVIDERS: PCP Physician Assistant; Visit Provider Obstetrics & Gynecology
DX: N64.89 Other specified disorders of breast (principal)
CPT/HCPCS: 77061; 77065; G0279